=== PATIENT | female | born 1935 | race Caucasian/White ===

== ENCOUNTER → 2018-09-20 | Outpatient (CLI) | payer OTHER ==
[~2018-09-20] MED LIST: ALBU90OI61 INH; AMLO5 PO; ASPI81CH PO; ATEN25; ATEN25 PO; ATEN50; AZAT50 PO; BUDE6HFA; DULO30; HYDACE5325 PO; LEVSOD100; LEVSOD100 PO; LISI20; LISI20 PO; LORA.5; METO50 PO; Motion Sickness25 M1 PO; NAPR500 PO; Norco 5-325 Ta1 EACH PO; ONDA8 PO; PRED1; PRED10; PRED5; RXHYD5325 PO; TRIHYD253A; WARF5 PO; Zofran Odt4 MG SL; [UNRECOGNIZED DRUG - OTHER]; [UNRECOGNIZED DRUG - OTHER]; [UNRECOGNIZED DRUG - REMARK]
== END | disposition home or self-care (01) ==
LOC: LAB SHORT 16:45 → LAB 16:45
DX: R35.0 Frequency of micturition (principal)
CPT/HCPCS: 87077; 87086; 87186

== ENCOUNTER 2019-01-13 10:09 | Emergency (ER) | payer OTHER ==
[~2019-01-13] VITALS: Ht 175.3 cm; Wt 112.9 kg
[2019-01-13 10:31] LABS: BASOPHILS ABSOLUTE AUTO 0.02 K/mm3 (0.00-0.23); BASOPHILS PERCENT AUTO 0 % (0-2); EOSINOPHILS ABSOLUTE AUTO 0.15 K/mm3 (0.00-0.68); EOSINOPHILS PERCENT AUTO 2 % (0-6); Hematocrit 40.1 % (33.0-51.0); Hemoglobin 12.8 g/dL (11.5-16.0); IMMATURE GRAN ABSOLUTE AUTO 0.02 K/mm3 (0.00-0.10); IMMATURE GRAN PERCENT AUTO 0 % (0-1); LYMPHOCYTES ABSOLUTE AUTO 0.83 K/mm3 (0.84-5.20); LYMPHOCYTES PERCENT AUTO 12 % (21-46); MONOCYTES ABSOLUTE AUTO 0.58 K/mm3 (0.16-1.47); MONOCYTES PERCENT AUTO 8 % (4-13); Mean Corpuscular HGB 29.6 pg (26.0-34.0); Mean Corpuscular HGB Conc 31.9 g/dL (31.5-36.5); Mean Corpuscular Volume 93 fL (80-100); Mean Platelet Volume 10.8 fL (9.1-12.4); NEUTROPHILS ABSOLUTE AUTO 5.48 K/mm3 (1.96-9.15); NEUTROPHILS PERCENT AUTO 77 % (41-73); Platelet Count 199 K/mm3 (150-400); RDW Coefficient Variation 14.2 % (11.7-14.2); RDW Standard Deviation 48.9 fL (35.1-46.3); Red Blood Cell Count 4.32 M/mm3 (3.80-5.20); White Blood Cell Count 7.08 K/mm3 (4.00-11.30)
[2019-01-13 10:51] LABS: Albumin, Blood 3.2 g/dL (3.4-5.0); Albumin/Globulin Ratio 0.9 (0.8-1.8); Bilirubin, Total 0.5 mg/dL (0.1-1.0); Bun/Creatinine Ratio 19.2 (12.0-20.0); Calcium, Blood 9.1 mg/dL (8.5-10.1); Creatinine, Blood 1.04 mg/dL (0.40-1.00); Globulin, Blood 3.7 g/dL (2.2-4.0); Potassium, Blood 4.1 mmol/L (3.5-5.5); Total Protein, Blood 6.9 g/dL (6.4-8.2)
[2019-01-13] MEDS ORDERED: PRED10 PO (13:44)
== END 2019-01-13 14:02 | disposition home or self-care (01) ==
LOC: ER 10:09
PROVIDERS: Emergency Medicine
DX: R52 Pain, unspecified (principal); R06.2 Wheezing; E03.9 Hypothyroidism, unspecified; Z87.891 Personal history of nicotine dependence; C34.90 Malignant neoplasm of unspecified part of unspecified bronchus or lung; Z88.5 Allergy status to narcotic agent; Z91.048 Other nonmedicinal substance allergy status; Z91.041 Radiographic dye allergy status; Z88.2 Allergy status to sulfonamides; Z79.899 Other long term (current) drug therapy; Z79.82 Long term (current) use of aspirin
CPT/HCPCS: 36415; 80053; 82550; 85025; 96374; 96375; 99283-25; J2405; J2550; J3010; J7512

== ENCOUNTER 2019-01-16 21:15 | Emergency (ER) | payer OTHER ==
[~2019-01-16] VITALS: Ht 175.3 cm; Wt 110.7 kg
[~2019-01-16 21:15] MED LIST changes: +PRED10 PO
== END 2019-01-16 23:17 | disposition home or self-care (01) ==
LOC: ER 21:15
DX: M62.830 Muscle spasm of back (principal); M25.512 Pain in left shoulder; E03.9 Hypothyroidism, unspecified; Z85.118 Personal history of other malignant neoplasm of bronchus and lung; Z87.891 Personal history of nicotine dependence; Z91.048 Other nonmedicinal substance allergy status; Z88.8 Allergy status to other drugs, medicaments and biological substances; Z91.041 Radiographic dye allergy status; Z88.2 Allergy status to sulfonamides; Z88.5 Allergy status to narcotic agent; Z79.899 Other long term (current) drug therapy; Z79.82 Long term (current) use of aspirin; Z79.52 Long term (current) use of systemic steroids
CPT/HCPCS: 73030; 99283-25; A9270; A9270-GY

== ENCOUNTER 2019-01-20 16:02 | Inpatient (IN) | payer OTHER ==
[~2019-01-20] VITALS: Ht 175.3 cm; Wt 110.9 kg
[2019-01-20] MEDS ORDERED: METO100 PO (16:47)
[2019-01-20] MEDS ORDERED: Prednisone10 MG PO (16:47)
[2019-01-20] MEDS ORDERED: COMBIVENT RESPIM4 GM INH (16:48)
[2019-01-20] MEDS ORDERED: MOTION RELIEF25 MG PO (16:49)
[2019-01-20 16:55] LABS: BASOPHILS ABSOLUTE AUTO 0.01 K/mm3 (0.00-0.23); BASOPHILS PERCENT AUTO 0 % (0-2); EOSINOPHILS ABSOLUTE AUTO 0.05 K/mm3 (0.00-0.68); EOSINOPHILS PERCENT AUTO 1 % (0-6); Hematocrit 38.4 % (33.0-51.0); Hemoglobin 12.5 g/dL (11.5-16.0); IMMATURE GRAN ABSOLUTE AUTO 0.06 K/mm3 (0.00-0.10); IMMATURE GRAN PERCENT AUTO 1 % (0-1); LYMPHOCYTES ABSOLUTE AUTO 0.89 K/mm3 (0.84-5.20); LYMPHOCYTES PERCENT AUTO 13 % (21-46); MONOCYTES ABSOLUTE AUTO 0.34 K/mm3 (0.16-1.47); MONOCYTES PERCENT AUTO 5 % (4-13); Mean Corpuscular HGB 30.1 pg (26.0-34.0); Mean Corpuscular HGB Conc 32.6 g/dL (31.5-36.5); Mean Corpuscular Volume 93 fL (80-100); Mean Platelet Volume 10.3 fL (9.1-12.4); NEUTROPHILS PERCENT AUTO 80 % (41-73); Platelet Count 250 K/mm3 (150-400); RDW Coefficient Variation 14.5 % (11.7-14.2); RDW Standard Deviation 49.4 fL (35.1-46.3); Red Blood Cell Count 4.15 M/mm3 (3.80-5.20); White Blood Cell Count 6.85 K/mm3 (4.00-11.30)
[2019-01-20 17:24] LABS: Alanine Aminotransfer (ALT/SGP 15 U/L (12-78); Albumin, Blood 3.2 g/dL (3.4-5.0); Alk Phos 51 U/L (50-136); Anion Gap 5 mmol/L (6-16); Aspartate Aminotrans (AST/SGOT 12 U/L (12-37); Bilirubin, Total 0.5 mg/dL (0.1-1.0); Blood Urea Nitrogen 41 mg/dL (8-24); Bun/Creatinine Ratio 26.6 (12.0-20.0); CO2, Blood 25 mmol/L (21-32); Calcium, Blood 9.3 mg/dL (8.5-10.1); Chloride, Blood 105 mmol/L (98-108); Creatinine, Blood 1.54 mg/dL (0.40-1.00); Globulin, Blood 3.3 g/dL (2.2-4.0); Glomerular Filtration Rate 34 (60-); Glucose, Blood 120 mg/dL (70-99); Potassium, Blood 4.9 mmol/L (3.5-5.5); Sodium, Blood 135 mmol/L (136-145); Total Protein, Blood 6.5 g/dL (6.4-8.2); Troponin I <0.015 ng/mL (0.000-0.040)
[2019-01-20 17:32] LABS: Source, Urine Clean Catch
[2019-01-20 17:41] LABS: Bilirubin, Urine Neg (Neg); Blood, Urine 1+ (Neg); Glucose Qualitative, Urine Neg (Neg); Ketones, Urine Neg (Neg); Leukocyte Esterase, Urine 3+ (Neg); Nitrite, Urine Pos (Neg); Protein, Urine Neg (Neg); Urobilinogen, Urine NORM (Normal)
[2019-01-20 17:54] LABS: Appearance, Urine Hazy (Clear); Color, Urine Yellow (P-Yellow)
[2019-01-20 17:55] LABS: Bacteria Many /hpf; Red Blood Cells, Urine 0-2 /hpf (0-2); Squamous Epithelial Cells Few /hpf (Few); White Blood Cells, Urine 25-50 /hpf (0-5)
[2019-01-20] MEDS ORDERED: EUTHYROX100 MCG PO (20:10)
[2019-01-20] MEDS ORDERED: EUTHYROX150 MCG PO (20:11)
[2019-01-20] MEDS ORDERED: POTCIT10 PO (20:24)
[2019-01-20] MEDS ORDERED: FURO40 PO (20:25)
--- NOTE | 2019-01-21 04:19 | NUR ---
SHIFT SUMMARY PT ARRIVED TO FLOOR IN NO DISTRESS. PT STILL REPORTS FEELING WEAK AND REQUIRES ASSISTANCE USING BSC. PT DENIES ANY EPISODES OF DIZZINESS. PT HAS SLEPT COMFORTABLY OFF AND ON. PT HAD NO ISSUES NOTED. PT CURRENTLY SLEEPING AND BREATHING EASY. CALL LIGHT IN REACH.
[2019-01-21 05:09] LABS: Bun/Creatinine Ratio 28.9 (12.0-20.0); Calcium, Blood 8.5 mg/dL (8.5-10.1); Creatinine, Blood 1.42 mg/dL (0.40-1.00); Potassium, Blood 4.7 mmol/L (3.5-5.5)
--- NOTE | 2019-01-21 18:28 | NUR ---
SHIFT SUMMARY PT RESTING QUIETLY THIS AM, IVF'S INFUSING PER EMAR. PT ADMITTED FOR LUNG CANCER, RECEIVING CHEMO 2 WKS AGO. PT REPORTING DIZZINESS WITH FALLS AT HOME. PER SHIFT REPORT PT WITH POSSIBLE UTI WELL. PT LIVING ALONE, BUT UNABLE TO CARE FOR HERSELF AT LEAST PRESENTLY. PT CALLED FOR ASSIST TO BS, BUT IS VERY WEAK AND BECOMES VERY DIZZY. 1P ASSIST WITH GAIT BELT AND FWW; PT VERY HEAVY. MECLIZINE GIVEN PER EMAR. PT HAS BEEN UP TO BS SEVERAL TIMES, BUT ONLY VOIDS ABOUT 25-50cc AT A TIME. PT UP WITH P/T TODAY. VISITORS TO OFF AND ON. MEDICATED WITH TYLENOL FOR C/O PAIN, RCW. PT REQUESTED BOWEL CARE. ORDERED AND ADMIN PER EMAR. NO FURTHER C/O. CALL LT IN REACH.
[2019-01-22 04:42] LABS: BASOPHILS ABSOLUTE AUTO 0.03 K/mm3 (0.00-0.23); BASOPHILS PERCENT AUTO 0 % (0-2); EOSINOPHILS ABSOLUTE AUTO 0.02 K/mm3 (0.00-0.68); EOSINOPHILS PERCENT AUTO 0 % (0-6); Hematocrit 35.9 % (33.0-51.0); Hemoglobin 11.3 g/dL (11.5-16.0); IMMATURE GRAN PERCENT AUTO 2 % (0-1); LYMPHOCYTES ABSOLUTE AUTO 0.89 K/mm3 (0.84-5.20); LYMPHOCYTES PERCENT AUTO 10 % (21-46); MONOCYTES ABSOLUTE AUTO 0.46 K/mm3 (0.16-1.47); MONOCYTES PERCENT AUTO 5 % (4-13); Mean Corpuscular HGB 28.8 pg (26.0-34.0); Mean Corpuscular HGB Conc 31.5 g/dL (31.5-36.5); Mean Corpuscular Volume 91 fL (80-100); Mean Platelet Volume 10.4 fL (9.1-12.4); NEUTROPHILS ABSOLUTE AUTO 7.29 K/mm3 (1.96-9.15); NEUTROPHILS PERCENT AUTO 82 % (41-73); Platelet Count 274 K/mm3 (150-400); RDW Coefficient Variation 14.7 % (11.7-14.2); RDW Standard Deviation 49.4 fL (35.1-46.3); Red Blood Cell Count 3.93 M/mm3 (3.80-5.20); White Blood Cell Count 8.89 K/mm3 (4.00-11.30)
[2019-01-22 05:02] LABS: Albumin, Blood 2.8 g/dL (3.4-5.0); Anion Gap 8 mmol/L (6-16); Blood Urea Nitrogen 39 mg/dL (8-24); Bun/Creatinine Ratio 28.3 (12.0-20.0); CO2, Blood 22 mmol/L (21-32); Calcium, Blood 8.9 mg/dL (8.5-10.1); Chloride, Blood 109 mmol/L (98-108); Creatinine, Blood 1.38 mg/dL (0.40-1.00); Glomerular Filtration Rate 39 (60-); Glucose, Blood 150 mg/dL (70-99); Phosphorus, Blood 2.8 mg/dL (2.5-4.9); Potassium, Blood 4.8 mmol/L (3.5-5.5); Sodium, Blood 139 mmol/L (136-145)
--- NOTE | 2019-01-22 05:14 | NUR ---
SHIFT SUMMARY PT HAS REQUESTED TO HAVE MILK OF MAG ADDED TO HER BOWEL CARE REGIMENT. WILL PASS ON TO DAY RN. PT HAD COMPLAINED OF CONTINUED LEFT SIDE NECK PAIN OFF AND ON T/O SHIFT. PT IS STILL UNSTEADY ON HER FEET DURING TRANSFER TO [facility] [place]. PT HAS SLEPT OFF AND ON T/O SHIFT. PT CURRENTLY SLEEPING IN NO DISTRESS. CALL LIGHT IN REACH.
--- NOTE | 2019-01-22 16:29 | NUR ---
Spiritual Care inital note: Mrs. Alcantar was alone in room, awake, and open to visit. She appears a bit confused at times. For instance, she had some muddled ideas about her discharge to SNF. Regardless, she engaged well and reports a strong abbie in God. she admits to feeling fearful at times, but she does not beleive she is nearing end-of-life. She beleives her chemo treatments are curative and she fully expects to be healed. She has three adult children "who are all very busy." Her dtr is the most available, but she is dealing with a spouse who is critically ill with his own cancer rao. Because of this, Lisbeth appears alone in decision-making and POC. Lisbeth responded well to theraputic listening and affirmation of abbie. She asked me to pray for her healing. I will remain available.
[2019-01-22] MEDS ORDERED: Vsl#3 Capsule1 EACH PO (17:44)
[2019-01-22] MEDS ORDERED: MIRALAX17 GM PO (17:46)
[2019-01-22] MEDS ORDERED: LEVO750 PO (17:47)
--- NOTE | 2019-01-22 18:19 | NUR ---
PT TO [facility] VIA [facility] TRANSPORTATION. PT ALERT AND ORIENTED PRIOR TO DISCHARGE. PT SELF AMBULATED TO WHEELCHAIR. REPORT CALLED TO RN AT [facility].
== END 2019-01-22 18:11 | DRG 689 ==
LOC: ER 16:02 → MEDS 19:29
PROVIDERS: Internal Medicine; Physician Assistant; ADMIT Internal Medicine
DX: N39.0 Urinary tract infection, site not specified (principal); J18.9 Pneumonia, unspecified organism; C34.90 Malignant neoplasm of unspecified part of unspecified bronchus or lung; N17.9 Acute kidney failure, unspecified; E87.1 Hypo-osmolality and hyponatremia; B96.20 Unspecified Escherichia coli [E. coli] as the cause of diseases classified elsewhere; E03.9 Hypothyroidism, unspecified; M06.9 Rheumatoid arthritis, unspecified; I25.10 Atherosclerotic heart disease of native coronary artery without angina pectoris; J44.9 Chronic obstructive pulmonary disease, unspecified; Z86.718 Personal history of other venous thrombosis and embolism; Z87.891 Personal history of nicotine dependence; E86.0 Dehydration; K59.00 Constipation, unspecified; I12.9 Hypertensive chronic kidney disease with stage 1 through stage 4 chronic kidney disease, or unspecified chronic kidney disease; N18.3 Chronic kidney disease, stage 3 (moderate); Z85.3 Personal history of malignant neoplasm of breast; Z92.3 Personal history of irradiation; Z92.21 Personal history of antineoplastic chemotherapy
CPT/HCPCS: 36415; 71250; 80048; 80053; 80069; 81001; 84145; 84443; 84484; 85025; 87077; 87086; 87186; 93005; 93010; 94640; 94760; 96361; 96365; 96366; 97110; 97116; 97162; 97166; 97530; 99285-25; A9270; J0696; J1650; J1956; J7030; J7512

== ENCOUNTER 2019-03-06 05:01 | Emergency (ER) | payer OTHER ==
[~2019-03-06] VITALS: Ht 175.3 cm; Wt 112.9 kg
[~2019-03-06 05:01] MED LIST changes: +COMBIVENT RESPIM4 GM INH; +EUTHYROX100 MCG PO; +EUTHYROX150 MCG PO; +FURO40 PO; +LEVO750 PO; +METO100 PO; +MIRALAX17 GM PO; +MOTION RELIEF25 MG PO; +POTCIT10 PO; +Prednisone10 MG PO; +Vsl#3 Capsule1 EACH PO
[2019-03-06] MEDS ORDERED: AMLO10 PO (05:35)
[2019-03-06] MEDS ORDERED: DOCU100 PO (05:36)
[2019-03-06] MEDS ORDERED: COMBIVENT RESPIM4 GM INH (05:36)
[2019-03-06] MEDS ORDERED: Florastor250 MG PO (05:37)
[2019-03-06] MEDS ORDERED: LEVSOD100 PO ×2 (05:38→05:39)
[2019-03-06] MEDS ORDERED: MOTION RELIEF25 MG PO (05:40)
[2019-03-06] MEDS ORDERED: LISI20 PO (05:40)
[2019-03-06] MEDS ORDERED: METO100 PO (05:41)
[2019-03-06] MEDS ORDERED: Prednisone10 MG PO (05:41)
[2019-03-06] MEDS ORDERED: MIRALAX17 GM PO (05:41)
[2019-03-06] MEDS ORDERED: ACET325 PO (05:42)
== END 2019-03-06 06:23 | disposition home or self-care (01) ==
LOC: ER 05:01
DX: M89.8X9 Other specified disorders of bone, unspecified site (principal); E03.9 Hypothyroidism, unspecified; J44.9 Chronic obstructive pulmonary disease, unspecified; Z85.118 Personal history of other malignant neoplasm of bronchus and lung; Z87.891 Personal history of nicotine dependence; Z91.048 Other nonmedicinal substance allergy status; Z88.8 Allergy status to other drugs, medicaments and biological substances; Z88.2 Allergy status to sulfonamides; Z88.5 Allergy status to narcotic agent; Z91.040 Latex allergy status; Z79.899 Other long term (current) drug therapy; Z79.52 Long term (current) use of systemic steroids
CPT/HCPCS: 99283; A9270-GY